=== PATIENT | female | born 1980 | race Hispanic/Latino ===

== ENCOUNTER 2017-07-09 14:00 | Outpatient (CLI) | payer OTHER ==
--- NOTE | 2017-07-10 11:08 | Mammography Report ---
Bilateral mammogram: Baseline mammogram. The patient presents with a several month history of feeling a thickened ridge beneath both breasts at the inferior mammogram chest wall junction. She indicates the right more prominent than the left. She also palpates an area posterior to the left breast along the lateral chest wall. She indicates her pain mostly from palpation. Markers were placed over areas of concern. Routine views are obtained. The markers on the inferior breast are included. The mammogram images however demonstrates a moderately fatty replaced pattern bilaterally which is symmetric in distribution. No abnormalities identified in the areas of the markers. A small circumscribed benign appearing nodule noted posteriorly in the left MLO projection. I palpated the breast demonstrated thickened tissue as indicated by the patient but no suspicious findings. I had difficulty feeling the chest wall abnormality. CAD used. Impression: No suspicious findings. Recommendation: I discussed clinical followup with the patient. If any changes noticed I instructed her to contact you for further evaluation. Otherwise, age-appropriate mammogram followup. BI-RADS CATEGORY: 2 = Benign ACR BI-RADS MAMMOGRAPHIC CODES: 0 = Needs additional imaging evaluation; 1 = Negative; 2 = Benign; 3 = Probably benign; 4 = Suspicious; 5 = Malignant; 6 = Known biopsy-proven malignancy COMMENT: 1. Dense breast tissue, i.e., adenosis, fibrocystic changes, etc., may obscure an underlying neoplasm. 2. Approximately 10% of cancers are not detected with mammography. 3. A negative mammography report should not delay biopsy if a clinically suspicious mass is present.
== END 2017-07-09 14:01 | disposition home or self-care (01) ==
LOC: SPVWC 14:00
PROVIDERS: ATTEND Advanced Practice Midwife
DX: N60.02 Solitary cyst of left breast (principal); N63.20 Unspecified lump in the left breast, unspecified quadrant
CPT/HCPCS: 77066

== ENCOUNTER 2017-10-05 15:35 | Outpatient (CLI) | payer OTHER ==
--- NOTE | 2017-10-05 16:22 | XRay Report ---
Left foot: Pain. There is mild generalized soft tissue thickening which may represent swelling around the ankle and dorsum of the foot. There is no effusion. The joints are aligned and well preserved. The bones are well-mineralized. Impression: Nonspecific swelling.
--- NOTE | 2017-10-06 07:31 | XRay Report ---
LEFT ANKLE, 3 views: History: left ankle pain. Bone mineralization is normal. No acute osseous abnormality or joint pathology is identified. A large plantar spur is identified. There is moderate to severe diffuse soft tissue swelling. IMPRESSION: Soft tissue swelling. Plantar spur.
== END 2017-10-05 15:36 | disposition home or self-care (01) ==
LOC: SPVIMAG 15:35
PROVIDERS: ATTEND Family Medicine
DX: M77.52 Other enthesopathy of left foot and ankle (principal)

== ENCOUNTER 2017-10-20 09:45 | Observation (INO) | payer OTHER ==
[2017-10-14 14:47] LABS: Basophils # (Auto) 0.1 K/mm3 (0.0-0.1); Basophils % (Auto) 0.7 % (0.0-1.8); Eosinophils # (Auto) 0.1 K/mm3 (0.0-0.4); Hematocrit 40.7 % (30.3-42.9); Hemoglobin 13.8 gm/dl (10.1-14.3); Lymphocytes # (Auto) 2.8 K/mm3 (1.2-5.4); Lymphocytes % (Auto) 26.3 % (13.4-35.0); Mean Corpuscular HGB Conc 34 % (30-34); Mean Corpuscular Hemoglobin 29 pg (28-32); Mean Corpuscular Volume 86 fl (79-97); Monocytes # (Auto) 0.6 K/mm3 (0.0-0.8); Monocytes % (Auto) 6.1 % (0.0-7.3); Platelet Count 334 K/mm3 (140-440); Red Blood Count 4.72 M/mm3 (3.65-5.03); Red Cell Distribution Width 13.8 % (13.2-15.2)
[2017-10-14 14:57] LABS: BUN/Creatinine Ratio 33; Blood Urea Nitrogen 13 mg/dL (7-17); Calcium 9.1 mg/dL (8.4-10.2); Hemolysis Index 6
--- NOTE | 2017-10-14 16:51 | Anesthesia Consultation ---
Anesthesia Consult and Med Hx Date of service: 10/14/17 - Airway Anesthetic Teeth Evaluation: Good ROM Head & Neck: Adequate Mental/Hyoid Distance: Adequate Mallampati Class: Class II Intubation Access Assessment: Probably Good - Pulmonary Exam CTA: Yes - Cardiac Exam Cardiac Exam: No Murmur - Pre-Operative Health Status ASA Pre-Surgery Classification: ASA2 Proposed Anesthetic Plan: General - Pre-Anesthesia Comment Pre-Anesthesia Comments: Patient with Severe Motion Sickness - Takes antiemetics frequently. TAP block for post op abdominal wall analgesia discussed - Pulmonary Hx Smoking: Yes (former) Hx Asthma: Yes (Allergy related asthma, last treated 1 year ago) - Cardiovascular System Hx Hypertension: Yes (x 5 yrs) - Central Nervous System Hx Psychiatric Problems: No - Hematic Hx Anemia: Yes (Past hx) - Other Systems Hx Alcohol Use: Yes (occas) Hx Cancer: No
[2017-10-20] MEDS ORDERED: TORADOL IV PRN (09:54)
[2017-10-20] MEDS ORDERED: ZOFRAN IV PRN (09:54)
[2017-10-20] MEDS ORDERED: DEMEROL IV PRN (09:54)
[2017-10-20] MEDS ORDERED: NEURONTIN PO NR (10:00)
[2017-10-20] MEDS ORDERED: LACTATED RINGERS 1,000 ML IV SCH ×2 (10:00→11:00)
[2017-10-20] MEDS ORDERED: VERSED IV NR (10:00)
--- NOTE | 2017-10-20 10:40 | History and Physical Report ---
History of Present Illness Date of examination: 10/20/17 Chief complaint: Symptomatic uterine fibroids History of present illness: Pt is a 37yo WF LMP 10/08/17 presents for surgical evaluation and treatment of uterine fibroids. She complains of heavy painful menstrual cycles. Pelvic u/ s showed uterus 11.2 x 7 x 5.2cm with an anterior fibroid. She had a BTL and does not desire future fertility. She is therefore scheduled for a Robotic Assisted Total Hysterectomy with ovarian conservation. Past History Past Medical History: asthma, hypertension Past Surgical History: section (x2), other (BTL) [employer] History: fibroids Family/Genetic History: none Social history: no significant social history, Medications and Allergies Allergies Allergy/AdvReac Type Severity Reaction Status Date / Time cabbage Allergy Hives Verified 10/20/17 10:05 chocolate flavor Allergy Hives Verified 10/20/17 10:05 Penicillins Allergy Hives Verified 10/20/17 10:05 pineapple Allergy Hives Verified 10/20/17 10:05 Home Medications Medication Instructions Recorded Confirmed Last Taken Type Albuterol Sulfate [Ventolin HFA] 2 puff IH Q4H PRN 10/07/17 10/07/17 Unknown History Beclomethasone Dipropionate [Qvar] 1 puff IH DAILY 10/07/17 10/07/17 Unknown History Fexofenadine HCl [Ashley Allergy] 180 mg PO DAILY 10/07/17 10/07/17 Unknown History Fluticasone [Flonase] 2 spray NS BID 10/07/17 10/07/17 Unknown History Losartan/Hydrochlorothiazide 1 tab PO DAILY 10/07/17 10/07/17 Unknown History [Losartan-Hctz 100-25 mg Tab] Active Meds: Active Medications Celecoxib (Celebrex) 200 mg PO PREOP NR Stop: 10/20/17 23:00 Gabapentin (Neurontin) 300 mg PO PREOP NR Stop: 10/20/17 23:00 Hydromorphone HCl (Dilaudid) 0.5 mg IV Q10MIN PRN PRN Reason: Pain , Severe (7-10) Stop: 10/20/17 18:00 Lactated Ringer's (Lactated Ringers) 1,000 mls @ 100 mls/hr IV DIRECT BREANNA Lactated Ringer's (Lactated Ringers) 1,000 mls @ 100 mls/hr IV DIRECT BREANNA Ketorolac Tromethamine (Toradol) 30 mg IV ONCE PRN PRN Reason: Pain, Moderate (4-6) Meperidine HCl (Demerol) 25 mg IV ONCE PRN PRN Reason: Shivering Midazolam HCl (Versed) 2 mg IV PREOP NR Stop: 10/20/17 23:59 Ondansetron HCl (Zofran) 4 mg IV ONCE PRN PRN Reason: Nausea And Vomiting Review of Systems All systems: negative - Vital Signs Vital signs: Vital Signs Temp Pulse Resp BP 99.2 F 72 18 138/84 10/14/17 13:50 10/14/17 13:50 10/14/17 13:50 10/14/17 13:50 Temp Pulse Resp BP Pulse Ox 99.2 F 72 18 138/84 10/14/17 13:50 10/14/17 13:50 10/14/17 13:50 10/14/17 13:50 - Physical Exam Breasts: Positive: deferred Cardiovascular: Regular rate Lungs: Positive: Clear to auscultation Abdomen: Positive: normal appearance Genitourinary (Female): Positive: normal external genitalia Uterus: Positive: enlarged Extremities: Positive: normal Results Result Diagrams: 10/14/17 14:00 10/14/17 14:00 All other labs normal. Ultrasound: report reviewed Assessment and Plan - Patient Problems (1) Uterine fibroid Onset Date: 10/20/17 Current Visit: Yes Status: Acute Qualifiers: Uterine leiomyoma location: submucous and subserous Qualified Code(s): D25.0 - Submucous leiomyoma of uterus; D25.2 - Subserosal leiomyoma of uterus Plan to address problem: A: Symptomatic uterine fibroids Menorrhagia Dysmenorrhea P: Admit for a Robotic Assisted Total Hysterectomy with Bilateral Salpingectomy (2) Menorrhagia Onset Date: 10/20/17 Current Visit: Yes Status: Chronic Qualifiers: Menorrahagia type: with regular cycle Qualified Code(s): N92.0 - Excessive and frequent menstruation with regular cycle (3) Dysmenorrhea Onset Date: 10/20/17 Current Visit: Yes Status: Chronic
[2017-10-20] MEDS ORDERED: GARAMYCIN 160 MG in NACL 0.9% 100 ML IV SCH (10:45)
[2017-10-20] MEDS ORDERED: CLEOCIN 600 MG/50 mL 600 MG/50 ML BAG IV SCH (11:00)
--- NOTE | 2017-10-20 11:16 | Anesthesia Day of Surgery ---
Anesthesia Day of Surgery - Day of Surgery Patient Examined: Yes Patient H&P Reviewed: Yes Patient is NPO: Yes Beta Blockers: No Cardiac Clearance: Yes Pulmonary Clearance: Yes Lauri's Test: N/A
[2017-10-20] MEDS ORDERED: PROVENTIL IH NR (12:00)
[2017-10-20] MEDS ORDERED: SUBLIMAZE IV ONE (12:19)
[2017-10-20] MEDS ORDERED: XYLOCAINE MPF 2% ONE (13:13)
[2017-10-20] MEDS ORDERED: ZEMURON IV ONE (13:13)
[2017-10-20] MEDS ORDERED: SUBLIMAZE ONE (13:13)
[2017-10-20] MEDS ORDERED: DIPRIVAN 10 MG/ML IV ONE (13:14)
[2017-10-20] MEDS ORDERED: NEOSPORIN GU IR ONE ×2 (13:26→15:32)
[2017-10-20] MEDS ORDERED: TRANSDERM-SCOP TD NR (14:00)
[2017-10-20] MEDS ORDERED: ROBINUL ONE (15:24)
[2017-10-20] MEDS ORDERED: TORADOL ONE (15:24)
[2017-10-20] MEDS ORDERED: DECADRON ONE (15:24)
[2017-10-20] MEDS ORDERED: BLOXIVERZ ONE (15:24)
[2017-10-20] MEDS ORDERED: DILAUDID ONE (15:24)
[2017-10-20] MEDS ORDERED: ZOFRAN ONE (15:24)
[2017-10-20] MEDS ORDERED: NACL 0.9% IR ONE ×2 (15:33)
--- NOTE | 2017-10-20 15:52 | Operative Report ---
Operative Report Operative Report: Date of procedure: 10/20/2017 Pre-operative diagnosis: 1. Symptomatic uterine fibroids 2. Menorrhagia 3. Dysmenorrhea Post-operative diagnosis: Same with extensive pelvic adhesions Procedure name(s): 1. Robotic-assisted total hysterectomy 2. Bilateral salpingectomy 3. Lysis of extensive pelvic adhesions Surgeon: Merlin Miller MD Financial Assistance Advisor: Yovana Farah FSA Anesthesia: ILIR Block followed by general endotracheal intubation EBL: 50 mL's Findings: A 10-12 week size myomatous uterus densely adherent to the anterior abdominal wall. Tubes showed evidence of previous tubal ligation bilaterally. Normal ovaries bilaterally. Omental adhesions to the anterior abdominal wall. Procedure: After the patient's first correctly identified she was prepped and draped in the usual sterile fashion and placed in the dorsolithotomy position. The bladder was first catheterized using Romo catheter and the speculum was placed in the vagina and the anterior lip of the cervix was grasped using a single-tooth tenaculum, and the medium Vesicare cup was placed. The tenaculum and speculum was then removed from the vagina and attention was then turned to the abdomen. The skin knife was used to make a small incision approximately 5 cm above the umbilicus through which a 12 mm trocar was placed under direct visualization. After adequate amount of abdominal insufflation visualization of the pelvic organs found the uterus to be enlarged and densely adherent to the anterior abdominal wall.The fallopian tubes showed evidence of previous tubal ligation bilaterally. The ovaries are normal bilaterally. A right lateral incision was made through which another 12 mm trocar was placed under direct visualization. A right and left paramedian incision was made through which the 8 mm trochars were placed under direct visualization and a 5 mm trocar was placed in the right upper quadrant. The patient was then placed in steep Trendelenburg positioning and the robot was docked on the patient's left side. After all the robotic ports were connected and adequate functioning of the robotic arms were tested the surgeon then proceeded to the console to begin the hysterectomy. First the omental adhesions were taken down from the anterior abdominal wall using sharp and blunt dissection. Next the left round ligament was grasped, cauterized and cut, the left utero-ovarian ligaments were grasped, cauterized and cut, and the left fallopian tube also grasped, cauterized and cut along the mesosalpinx, thus freeing the left ovary from the left uterine sidewall. The same procedure was performed on the right. The right round ligament was grasped , cauterized and cut, the right utero-ovarian ligaments were grasped, cauterized and cut, and the right fallopian tube also grasped, cauterized and cut along the mesosalpinx, thus freeing the right ovary from the right uterine sidewall. The uterus was densely adherent to the anterior abdominal wall, and adhesions were taken down using sharp dissection from the fundus to the lower uterine segment. The bladder flap was taken down anteriorly and the uterine vessels were grasped, cauterized and cut bilaterally. The cardinal ligaments were sequentially grasped, cauterized and cut down to the level of the uterosacral ligaments. At this time the posterior colpotomy was performed over the Vcare cup, and the cervix was circumscribed beginning posteriorly and meeting anteriorly until the cervix was freed. The cervix and uterus was then removed through the vagina and sent to pathology. The vaginal cuff was then closed using 2-0 Vloc suture in a running fashion. Irrigation was then performed and after good hemostasis was achieved the procedure was considered complete. The Tisseel sealant was then sprayed across the vaginal cuff site, and after excellent hemostasis was assured Interceed was placed across the vaginal cuff site. All instruments were then removed from the abdominal cavity. And each incision was closed using 0 Vicryl suture in a figure-of- eight configuration on the fascia followed by 4-0 Monocryl suture in a sub- cuticular fashion on the skin. Each incision was also infiltrated using 0.5% Marcaine solution. The vaginal pack was removed. The patient tolerated the procedure well and was transported to the recovery room in stable condition.
[2017-10-20] MEDS ORDERED: MILK OF MAGNESIA PO PRN (15:53)
[2017-10-20] MEDS ORDERED: TYLENOL PO PRN (15:53)
[2017-10-20] MEDS ORDERED: REGLAN IV PRN (15:53)
--- NOTE | 2017-10-20 15:58 | Post Anesthesia Evaluation ---
- Post Anesthesia Evaluation Patient Participated: Yes Airway Patent: Yes Stable Respiratory Function: Yes Nausea/Vomiting: No Temp > 96.8F: Yes Pain Manageable: Yes Adequeate Hydration: Yes Anesthesia Complications: No
[2017-10-20] MEDS: DILAUDID IV PRN ×2 (16:15→16:25)
[2017-10-20] MEDS ORDERED: D5LR 1,000 ML IV SCH (17:00)
[2017-10-20] MEDS: NORCO 5/325 PO PRN ×2 (18:24→22:19)
[2017-10-20] MEDS: COLACE PO SCH (22:19)
[2017-10-20] MEDS: CLEOCIN 600 MG/50 mL 600 MG/50 ML BAG IV SCH (22:24)
[2017-10-20] MEDS: GARAMYCIN/NS 80 MG/100 ML 100 ML IV SCH (22:29)
[2017-10-21] MEDS: NORCO 5/325 PO PRN ×3 (03:40→12:40)
[2017-10-21] MEDS: GARAMYCIN/NS 80 MG/100 ML 100 ML IV SCH (03:43)
[2017-10-21] MEDS: CLEOCIN 600 MG/50 mL 600 MG/50 ML BAG IV SCH (03:45)
[2017-10-21 05:31] LABS: Hematocrit 37.3 % (30.3-42.9); Hemoglobin 12.2 gm/dl (10.1-14.3)
--- NOTE | 2017-10-21 08:11 | Progress Note ---
Assessment and Plan - Patient Problems (1) Uterine fibroid Onset Date: 10/20/17 Current Visit: Yes Status: Resolved Qualifiers: Uterine leiomyoma location: submucous and subserous Qualified Code(s): D25.0 - Submucous leiomyoma of uterus; D25.2 - Subserosal leiomyoma of uterus (2) Menorrhagia Onset Date: 10/20/17 Current Visit: Yes Status: Resolved Qualifiers: Menorrahagia type: with regular cycle Qualified Code(s): N92.0 - Excessive and frequent menstruation with regular cycle (3) Dysmenorrhea Onset Date: 10/20/17 Current Visit: Yes Status: Resolved (4) Status post robot-assisted surgical procedure Onset Date: 10/21/17 Current Visit: Yes Status: Resolved Plan to address problem: A: S/P RATH - POD #1 Doing well P: May go home today. Subjective - Subjective Date of service: 10/21/17 Principal diagnosis: S/P RATH - POD #1 Interval history: Pt is s/p a Robotic Assisted Total Hysterectomy with Bilateral salpingectomy, and feeling well. She is tolerating a reg diet without nausea or vomiting, ambulating and voiding without difficulty. Patient reports: appetite normal, voiding normally, pain well controlled, flatus , ambulating normally, no dizzy ambulation, no nauseated Objective - Vital Signs Latest vital signs: Vital Signs Temp Pulse Resp BP BP Pulse Ox 10/21/17 04:20 98.2 F 50 L 20 101/63 10/21/17 00:00 99.1 F 56 L 20 104/67 10/20/17 20:00 98.2 F 58 L 20 113/71 10/20/17 18:24 20 10/20/17 17:10 98.5 F 62 20 118/71 10/20/17 16:40 16 10/20/17 16:25 16 10/20/17 16:16 64 16 139/85 96 10/20/17 16:15 18 10/20/17 16:05 16 10/20/17 16:00 67 24 128/71 99 10/20/17 15:55 68 22 127/76 100 10/20/17 15:50 72 22 145/85 100 10/20/17 15:45 81 18 137/81 96 10/20/17 15:41 97.7 F 87 16 143/88 100 10/20/17 13:20 64 12 114/72 98 10/20/17 13:15 65 15 106/77 95 10/20/17 13:10 72 17 116/75 96 10/20/17 13:05 69 18 116/67 95 10/20/17 13:00 98.3 F 68 18 121/73 96 10/20/17 12:55 72 21 128/64 94 10/20/17 12:50 75 11 L 121/69 95 10/20/17 12:45 70 13 120/73 98 10/20/17 11:05 98.3 F 68 18 121/73 96 Intake and Output 10/20/17 10/21/17 10/21/17 22:59 06:59 14:59 Intake Total 310 1270 Output Total 375 400 Balance -65 870 Intake: IV 250 1150 CLEOCIN 600 MG/50 mL 600 50 mg In 50 ml @ 100 mls/hr IV Q8H BREANNA Rx#:[id number] Garamycin/Ns 80 mg/100 ml 100 100 ml @ 200 mls/hr IV Q8H BREANNA Rx#:[id number] Lactated Ringers 1,000 ml 1000 @ 100 mls/hr IV DIRECT BREANNA Rx#:[id number] Oral 60 120 Output: Urine 375 400 Indwelling Catheter 100 400 Other: Intake, Other Source Saline Solution Total, Intake Amount 60 120 Total, Output Amount 100 400 Weight 98.43 kg - Exam Breasts: Present: deferred Cardiovascular: Present: Regular rate Lungs: Present: Clear to auscultation Abdomen: Present: normal appearance, soft Incision: Present: normal, dry, intact - Labs Labs: Laboratory Tests 10/14/17 10/14/17 10/14/17 14:00 14:00 14:00 WBC 10.7 RBC 4.72 Hgb 13.8 Hct 40.7 MCV 86 MCH 29 MCHC 34 RDW 13.8 Plt Count 334 Lymph % (Auto) 26.3 [place] % (Auto) 6.1 Eos % (Auto) 1.0 Baso % (Auto) 0.7 Lymph # 2.8 [place] # 0.6 Eos # 0.1 Baso # 0.1 Seg Neutrophils % 65.9 Seg Neutrophils # 7.1 Sodium 138 Potassium 3.5 L Chloride 98.1 Carbon Dioxide 29 Anion Gap 14 BUN 13 Creatinine 0.4 L Estimated GFR > 60 BUN/Creatinine Ratio 33 Glucose 92 Calcium 9.1 HCG, Qual Negative Blood Type Antibody Screen 10/20/17 10/21/17 11:25 04:42 WBC RBC Hgb 12.2 Hct 37.3 MCV MCH MCHC RDW Plt Count Lymph % (Auto) [place] % (Auto) Eos % (Auto) Baso % (Auto) Lymph # [place] # Eos # Baso # Seg Neutrophils % Seg Neutrophils # Sodium Potassium Chloride Carbon Dioxide Anion Gap BUN Creatinine Estimated GFR BUN/Creatinine Ratio Glucose Calcium HCG, Qual Blood Type O NEGATIVE Antibody Screen Negative
--- NOTE | 2017-10-21 08:28 | Discharge Summary ---
Providers - Providers Date of Admission: 10/20/17 15:53 Date of discharge: 10/21/17 Attending physician: RJ CAMACHO Primary care physician: MARTHA ALMODOVAR Hospitalization Reason for admission: other (Symptomatic uterine fibroids; Menorrhagia: Dysmenorrhea) Procedure: other (Robotic Assisted Total Hysterectomy with Bilateral Salpingectomy) Incision: normal, dry, intact Other procedures: none complications: none Discharge diagnosis: other (s/p RATH with Bilateral Salpingectomy) Hospital course: Pt is a 37yo WF LMP 10/08/17 who presented for surgical evaluation and treatment of uterine fibroids. She complained of heavy painful menstrual cycles. She underwent an uncomplicated Robotic Assisted Total Hysterectomy with Bilateral salpingectomy, and by POD #1 she was tolerating a reg diet without nausea or vomiting, ambulating and voiding without difficulty. She was therefore discharged to home on POD #1 in stable condition. Condition at discharge: Good Disposition: DC-01 TO HOME OR SELFCARE - Discharge Diagnoses (1) Uterine fibroid Status: Resolved Qualifiers: Uterine leiomyoma location: submucous and subserous Qualified Code(s): D25.0 - Submucous leiomyoma of uterus; D25.2 - Subserosal leiomyoma of uterus (2) Menorrhagia Status: Resolved Qualifiers: Menorrahagia type: with regular cycle Qualified Code(s): N92.0 - Excessive and frequent menstruation with regular cycle (3) Dysmenorrhea Status: Resolved Plan - Discharge Medications Prescriptions: HYDROcodone/APAP 5-325 [[place] 5-325 mg TAB] 1 each PO Q6HR PRN #30 tablet PRN Reason: Pain, Moderate (4-6) Ibuprofen [Motrin] 800 mg PO Q8HR PRN #30 tablet PRN Reason: Moder Pain Unrelieved By [place] - Provider Discharge Summary Activity: routine, no sex for 6 weeks, no heavy lifting 4 weeks, no strenuous exercise Diet: routine Instructions: routine Additional instructions: [] Smoking cessation referral if applicable(refer to patient education folder for contact #) [] Refer to [facility] Booklet Call your doctor immediately for: * Fever > 100.5 * Heavy vaginal bleeding ( >1 pad per hour) * Severe persistent headache * Shortness of breath * Reddened, hot, painful area to leg or breast * Drainage or odor from incision. * Keep incision clean and dry at all times and follow doctor's instructions regarding bathing/showering - Follow up plan Follow up: MARTHA ALMODOVAR MD [Primary Care Provider] - 7 Days RJ CAMACHO MD [Staff Physician] - 14 Days
[2017-10-21 11:21] VITALS: BP 102/58
[2017-10-21] MEDS: COLACE PO SCH (12:55)
== END 2017-10-21 13:30 | disposition home or self-care (01) ==
LOC: OR 09:45 → OB 15:53
PROVIDERS: ADMIT Obstetrics & Gynecology; ATTEND Obstetrics & Gynecology
DX: D25.9 Leiomyoma of uterus, unspecified (principal); I10 Essential (primary) hypertension; J45.909 Unspecified asthma, uncomplicated; N92.0 Excessive and frequent menstruation with regular cycle
CPT/HCPCS: 36415; 58552; 64450; 80048; 84703; 85014; 85018; 85025; 86850; 86900; 86901; 88307; 96365; 96367; 96375; A4217; C1765; C9250; G0378; J1100; J1170; J1580; J1885; J2250; J2405; J2704; J2710; J3010; J7120; J7121; S2900; 88302